=== PATIENT | male | born 1980 | race Caucasian/White ===

== ENCOUNTER 2022-10-16 10:47 | Emergency (ER) | payer OTHER ==
[~2022-10-16] VITALS: Ht 182.9 cm; Wt 113.4 kg
[2022-10-16] MEDS ORDERED: DOXYCYCLINE HYCLATE 100 MG TABLET PO ONE (11:00)
[2022-10-16] MEDS ORDERED: CEFTRIAXONE 500 MG VIAL IM ONE (11:00)
--- NOTE | 2022-10-16 11:00 | NUR ---
[email or web address], medical screening exam in progress
[2022-10-16] MEDS ORDERED: DOXYCYCLINE HYCLATE 100 MG TABLET ONE (11:07)
[2022-10-16] MEDS ORDERED: DOXY100C5 PO (11:07)
[2022-10-16] MEDS ORDERED: LIDOCAINE HCL 1% 20 ML VIAL ONE (11:07)
[2022-10-16] MEDS ORDERED: CEFTRIAXONE 500 MG VIAL ONE (11:07)
--- NOTE | 2022-10-16 11:19 | NUR ---
No adverse rxn seen from IM antibiotic medicines. Patient discharged to home by Dr Alberto in stable condition with brisk steady gait. Written and verbal after care instructions given to patient. Patient verbalized understanding and compliance of instructions. Stressed follow up with primary doctor and urologist or return to ER for worsening s/s.
== END 2022-10-16 11:19 | disposition home or self-care (01) ==
LOC: ER 10:47
DX: N34.2 Other urethritis (principal); A64 Unspecified sexually transmitted disease; Z79.2 Long term (current) use of antibiotics
CPT/HCPCS: 99283; 96372; J0696; J3490; A4663